=== PATIENT | female | born 1990 | race Two or more races ===

== ENCOUNTER 2019-05-11 13:07 | Emergency (ER) | payer OTHER ==
[~2019-05-11] VITALS: Ht 152.4 cm; Wt 58.5 kg
== END 2019-05-11 15:28 | disposition home or self-care (01) ==
LOC: ER 13:07
DX: M94.0 Chondrocostal junction syndrome [Tietze] (principal)

== ENCOUNTER 2020-09-17 17:44 | Emergency (ER) | payer OTHER ==
[~2020-09-17] VITALS: Ht 154.9 cm; Wt 54.4 kg
[2020-09-17] MEDS ORDERED: BACTRIM DS TAB1 EACH PO (18:25)
[2020-09-17] MEDS ORDERED: DICLOFENAC SODI75 MG PO (18:25)
== END 2020-09-17 21:30 | disposition home or self-care (01) ==
LOC: ER 17:44
DX: N61.1 Abscess of the breast and nipple (principal)

== ENCOUNTER 2021-04-29 12:41 | Emergency (ER) | payer OTHER ==
[~2021-04-29] VITALS: Ht 165.1 cm; Wt 57.6 kg
[~2021-04-29 12:41] MED LIST: BACTRIM DS TAB1 EACH PO; DICLOFENAC SODI75 MG PO
== END 2021-04-29 15:13 | disposition home or self-care (01) ==
LOC: ER 12:41
DX: B34.9 Viral infection, unspecified (principal)

== ENCOUNTER 2023-04-21 14:01 | Emergency (ER) | payer OTHER ==
[~2023-04-21] VITALS: Ht 154.9 cm; Wt 60.8 kg
== END 2023-04-21 16:51 | disposition home or self-care (01) ==
LOC: ER 14:01
DX: M43.6 Torticollis (principal); Z91.013 Allergy to seafood